=== PATIENT | female | born 1945 | race African-American/Black ===

== ENCOUNTER 2021-08-26 18:00 | Emergency (ER) | payer OTHER ==
[~2021-08-26] VITALS: Ht 152.4 cm; Wt 49.9 kg
[2021-08-26] MEDS ORDERED: TOPROL XL25 MG PO (18:19)
[2021-08-26] MEDS ORDERED: KLOR-CON M2020 MEQ PO (18:19)
[2021-08-26] MEDS ORDERED: DICLOFENAC SOD100 G1 TOP (18:19)
[2021-08-26] MEDS ORDERED: NORVASC5 MG PO (18:20)
[2021-08-26] MEDS ORDERED: CRESTOR5 MG PO (18:20)
[2021-08-26] MEDS ORDERED: PROTONIX40 M2 PO (18:20)
[2021-08-26] MEDS ORDERED: CALCIUM CARBON500 MG PO (18:21)
[2021-08-26] MEDS ORDERED: MIRALAX119 GM PO (18:21)
[2021-08-26 19:44] LABS: ABSOLUTE NEUTROPHILS 2.7 thou/uL (1.4-8.2); BASOPHILS 1.3 % (0.0-2.0); EOSINOPHILS 1.1 % (0.0-3.0); HEMOGLOBIN 14.3 gm/dL (12.0-15.0); MCH 29.4 pg (26.0-34.0); MCHC 33.2 g/dL (28.0-37.0); MCV 88.5 fL (80.0-100.0); MONOCYTES 9.5 % (1.0-8.0); PLATELET COUNT 374 thou/uL (150-400); POLYS 56.1 % (36.0-66.0); RBC 4.86 mil/uL (4.20-5.00); RDW 16.2 % (10.5-14.5); WBC 4.9 thou/uL (4.0-11.0)
[2021-08-26 19:51] LABS: CALCIUM 9.7 mg/dL (8.5-10.1); CREATININE 0.9 mg/dL (0.6-1.0); POTASSIUM 3.9 mmol/L (3.5-5.1)
[2021-08-26 19:57] LABS: ALBUMIN 3.9 g/dL (3.4-5.0); TOTAL BILIRUBIN 0.5 mg/dL (0.2-1.0); TOTAL PROTEIN 7.1 g/dL (6.4-8.2)
[2021-08-26 20:06] LABS: URINE BLOOD NEGATIVE (Negative); URINE CLARITY SL CLOUDY; URINE COLOR YELLOW; URINE GLUCOSE-RANDOM* NEGATIVE (Negative); URINE KETONES TRACE (Negative); URINE NITRITE-REFLEX NEGATIVE (Negative); URINE PROTEIN (DIPSTICK) TRACE (Negative); URINE SPECIFIC GRAVITY >= 1.030 (1.005-1.035)
[2021-08-26 20:10] LABS: ICTOTEST (BILI CONFIRMATORY) Negative (Negative); URINE BILIRUBIN NEGATIVE (Negative); URINE LEUKOCYTES-REFLEX 1+ (Negative)
[2021-08-26 20:18] LABS: SQUAMOUS >10 Many /LPF (0-3)
[2021-08-26 20:19] LABS: CASTS None Seen /LPF (None Seen); CRYSTALS None Seen /LPF (None Seen); URINE RBC 3-10 Few /HPF (NONE SEEN); URINE WBC-REFLEX 6-15 Few /HPF (0-5)
[2021-08-26 20:54] VITALS: BP 127/87
== END 2021-08-26 20:59 | disposition home or self-care (01) ==
LOC: ER 18:00
PROVIDERS: Nurse Practitioner
DX: M79.642 Pain in left hand (principal); M79.641 Pain in right hand; M19.90 Unspecified osteoarthritis, unspecified site; Z79.899 Other long term (current) drug therapy